=== PATIENT | female | born 1955 | race Caucasian/White ===

== ENCOUNTER 2018-10-11 16:17 | Outpatient (REF) | payer SELFPAY ==
--- NOTE | 2018-10-11 13:45 | PAPFT_PTH ---
PATIENT: Symone Macias LOC: [facility] U#:[id number] AGE/SX: 63/F ROOM: RE10/11/[address]: Bobbi Barajas : 1955 BED: DIS: 10/11/2018 SPEC #: [id number] RECD: 10/11/18 18:15 STATUS: SUNDEEP REVicki #: [id number] MANGO: 10/11/18 13:[address]: Bobbi Barajas DEPT: [facility] Cytology RECD BY: Tanisha Nelson Tissues: 1 - CX/ENDOCX FOR PAP SMEARS Procedures: PAP THIN PREP/UVM Screening HPV DNA PROBE Comments: [id number]
== END 2018-10-11 16:37 ==
LOC: NCHCN 16:17
PROVIDERS: PCP Family Medicine; Visit Provider Family Medicine
DX: Z12.4 Encounter for screening for malignant neoplasm of cervix (principal); Z11.51 Encounter for screening for human papillomavirus (HPV)
CPT/HCPCS: 88142; 87624

== ENCOUNTER 2018-10-21 00:18 | Outpatient (CLI) | payer SELFPAY ==
--- NOTE | 2018-10-21 10:40 | DI.MAMMO_ITS ---
SYMPTOM/DIAGNOSIS: SCREENING FOR BREAST CANCER, Z12.39 MAMMOGRAMS: Mammograms were interpreted according to the usual protocol including computer analysis with CAD system, tomosynthesis and C view imaging. The breast tissue is heterogeneously radiodense which may lower the sensitivity of the study. There is no dominant mass. There are no suspicious calcifications. A small biopsy clip is identified in the superior portion of the right breast. There has been no significant interval change when compared with prior images. SUMMARY: No evidence of malignancy. Category 1, yearly screening mammography is recommended. Breast density category C. MQSA ASSESSMENT OF FINDINGS: Negative. Category 1. Patient will receive a letter notifying them of these results. Bi-RADS category C. The breasts are heterogeneously dense, which may obscure small masses.
== END 2018-10-21 00:38 ==
PROVIDERS: PCP Family Medicine; Visit Provider Family Medicine
DX: Z12.31 Encounter for screening mammogram for malignant neoplasm of breast (principal)
CPT/HCPCS: 77063; 77067

== ENCOUNTER 2021-09-02 18:19 | Outpatient (REF) | payer MEDICARE, SELFPAY ==
[2021-09-02 14:44] LABS: Calculated LDL 179 mg/dL (<100); Cholesterol 280 mg/dL (<200); HDL Cholesterol 94 mg/dL (40-60); Triglyceride 39 mg/dL (<150)
[2021-09-03 10:45] LABS: HIV-1/2 Ag & Ab Screen Negative (Negative)
[2021-09-03 10:53] LABS: Hepatitis C Ab w Rflx HCV PCR Negative (Negative)
== END 2021-09-02 18:20 | disposition home or self-care (01) ==
LOC: NCHCN 18:19
PROVIDERS: PCP Family Medicine; Visit Provider Family Medicine
DX: Z00.00 Encounter for general adult medical examination without abnormal findings (principal); Z13.220 Encounter for screening for lipoid disorders; Z11.4 Encounter for screening for human immunodeficiency virus [HIV]; Z11.59 Encounter for screening for other viral diseases
CPT/HCPCS: 80061; 86803; 87389

== ENCOUNTER → 2021-10-24 02:08 | Outpatient (CLI) | payer MEDICARE, SELFPAY ==
--- NOTE | 2021-10-24 15:00 | DI.DEXA_ITS ---
Exam(s) XR DEXA BONE DENSITY W/WO KYLIE EXAM: XR DEXA BONE DENSITY W/WO KYLIE CLINICAL HISTORY: MENOPAUSAL, Z78.0 TECHNIQUE: [employer] C densitometer analysis of left hip, lumbar spine and left forearm. COMPARISON: CR ABD FLAT UPRIGHT PA CHEST from 05/21/2012 CR SACRUM COCCYX from 11/15/2012 FINDINGS: Lateral view of the thoracic and lumbar spine shows no evidence of compression fractures. Upper and mid thoracic vertebral bodies not optimally visualized. Thoracic kyphosis. Bone mineral density measurements of the lumbar spine correspond to a total T-score of -1.3, consiste nt with osteopenia. Bone mineral density measurements of the left hip correspond to a total T-score of -1.5. The femora l neck T-score is -1.7, consistent with osteopenia.. The right forearm bone mineral density measurements correspond to a T-score of the distal 3rd of 0, i n the normal range. . IMPRESSION: Osteopenia the lumbar spine and left hip. normal bone mineral density of the right forearm.
--- NOTE | 2021-10-24 15:30 | DI.MAMMO_ITS ---
Exam(s) MAMMO SCREENING EXAM: MAMMO SCREENING CLINICAL HISTORY: SCREENING, Z12.39 TECHNIQUE: Mammograms were interpreted according to the usual protocol including computer analysis w [employer] CAD system, tomosynthesis and C-view imaging. COMPARISON: 2012 through 2018 FINDINGS: The breasts are composed of scattered fibroglandular densities, Breast Density category B. No suspicious masses or suspicious microcalcifications are seen. A biopsy marker is noted in the post erior right breast. No skin thickening or abnormal axillary lymph nodes are seen. There has been no significant change from prior exams. IMPRESSION: BI-RADS Category 1, Negative mammogram Yearly screening mammography is recommended. Breast Density - Category B, scattered fibroglandular densities. A negative radiographic report should not delay biopsy if a dominant or clinically suspicious mass is present. Up to ten percent of cancers are not identified on mammography. A negative report may reinforce clinical impression. Adenosis and dense breasts may obscure an underlying neoplasm. False positive reports average 6 to 10%. Patient will receive a letter notifying them of these results.
== END ==
PROVIDERS: PCP Family Medicine; Visit Provider Family Medicine
DX: Z12.31 Encounter for screening mammogram for malignant neoplasm of breast (principal); M85.89 Other specified disorders of bone density and structure, multiple sites; Z78.0 Asymptomatic menopausal state
CPT/HCPCS: 77063; 77067; 77080

== ENCOUNTER 2023-01-09 08:28 | Emergency (ER) | payer MEDICARE, SELFPAY ==
[2023-01-09 08:32] VITALS: BP 147/74; PULSE 94; RESP 18; TEMP 36.4; O2SAT 99
[2023-01-09 09:06] LABS: Abs Immature Grans 0.02 10^3/uL (0.0-0.06); Absolute Basophil Count 0.05 10^3/uL (0.0-0.2); Absolute Eosinophil Count 0.02 10^3/uL (0.0-0.7); Absolute Lymphocyte Count 0.76 10^3/uL (1.2-3.4); Absolute Monocyte Count 0.66 10^3/uL (0.1-0.8); Absolute Neutrophil Count 4.09 10^3/uL (1.2-6.7); Basophils % 0.9; Eosinophils % 0.4; HCT 45.9 % (36.0-46.0); HGB 15.9 g/dL (11.2-15.7); Immature Grans % 0.4; Lymphocytes % 13.6; MCH 30.3 pg (27.0-33.0); MCHC 34.6 % (32.0-36.0); MCV 88 fL (80-95); Monocytes % 11.8; Neutrophils % 72.9; RBC 5.24 10^6/uL (3.93-5.22); RDW 12.7 % (11.7-14.6); RDW-SD 41.1 fL
--- NOTE | 2023-01-09 09:14 | W.ED.GENAD ---
Discharge Plan Disposition Patient Disposition: Home Discharge Details Clinical Impression: Colitis Primary Care Provider: Bobbi Barajas ED Provider: Max Marina Home Meds and New Rx's Prescriptions: New levofloxacin 500 mg tablet 500 mg PO DAILY Qty: 5 0RF No Action diphenhydramine HCl 50 MG capsule 50 mg PO HS Patient Comments: not taking melatonin 3 MG tablet 3 mg PO HS Patient Comments: not taking Discharge Instructions Instructions: Colitis (ED) Additional Instructions: Continue to stay well-hydrated and eat a diverse proper diet. It is also recommended that you use probiotics to help replenish your gut with healthy bacteria as you are being placed on an antibiotic to kill the harmful bacteria suspected causing your symptoms. If you have any new or significant worsening of symptoms feel free to return the emergency department for reassessment otherwise follow-up with your primary care provider as discussed Referrals: Bobbi Barajas MD [Primary Care Provider] - Medical Decision Making Patient presenting to the emergency department for chief complaint of abdominal cramping and diarrhea. Patient states 6 days ago she ate a lot of junk food which then caused her to have some diarrhea and upset stomach over the next couple days. Symptoms seem to start resolving but then last night she ate blackberries and woke up in the middle of the night with severe abdominal cramping pain discomfort. She does state some nausea. Denies any urinary symptoms. Patient states only past medical history is of cholecystectomy. Patient otherwise takes no other daily medications. Physical exam shows adult female patient in moderate amount of abdominal pain distress guarding and holding abdomen. Abdomen is soft with diffuse tenderness that cannot be localized, normal cardiac and respiratory exam, no CVA tenderness. We will plan on checking patient's labs and CT imaging of the abdomen. Differential diagnosis to include colitis, diverticulitis, appendicitis, other undifferentiated intra-abdominal pathology. Pending results will give patient ketorolac, hydromorphone, zofran and IV fluids. Reviewed patient's labs and CBC only shows slight increase of hemoglobin and RBCs otherwise no significant leukocytosis or shift, CMP shows anion gap of 12.1 with BUN of 23 again otherwise all other values within normal range, normal range lipase. Reviewed CT imaging and discussed this with radiologist who states significant colitis with differentials to include inflammatory versus infectious. He does state given appearance he will be concern for infectious nature. He did recommend patient has a colonoscopy once symptoms have resolved on an outpatient basis. Patient was informed of this recommendation and she states that she is currently moving but will discuss this with her new primary care provider. Given that all of patient's symptoms started with acute episode of eating I do feel there is potential for this to be infectious and we will treat patient empirically with Levaquin. Did discuss the risk of fluoroquinolones with patient. After discussion of diagnosis and plan of care patient has no further needs, questions, or concerns and states clear understanding to return to the emergency department for any worsening symptoms. This documentation was generated using [employer] dictation system, please disregard any oddities of phrase or misspellings. Imaging Data Radiologic Study: Imaging: CT Scan Radiologist's impression: Exam(s) a CT:CT abdomen & pelvis w Exam(s) CT ABDOMEN PELVIS W EXAM: CT ABDOMEN PELVIS W CLINICAL HISTORY: Abdominal cramping nausea diarrhea TECHNIQUE: Imaging Protocol: Axial computed tomography images with coronal and sagittal reformatted images were created and reviewed CONTRAST MATERIAL: Intravenous: Omnipaque 350 Contrast volume:89 mL Oral: yes / no COMPARISON: CT UPPER ABD WITH CONTRAST (P) from 05/21/2012 FINDINGS: ABDOMEN: Lung Bases: Normal where visualized. Liver: Normal density. There are few tiny (less than 3 mm hypodense lesions scattered in the liver. They are too small for further characterization. Portal, Superior Mesenteric, and Splenic Veins: Unremarkable. Gallbladder and Biliary Tract: Status post cholecystectomy. No significant biliary ductal dilatation is seen. Pancreas: Normal density, no abnormal calcifications or inflammatory process. Spleen: Normal. Adrenals: No masses seen. Kidneys: Normal size, contour and axis. No radiodense stones or obstructive uropathy. No masses seen. Abdominal Aorta: Abdominal portion non-dilated. Atherosclerosis. Bowel: There is a redundant sigmoid colon. There is wall thickening beginning in the ascending colon and extending nearly the entire length of the transverse colon. Inflammatory stranding is seen around the colon. A portion of the 5th soft tissue thickening extends into the lumen of the cecum. A soft tissue mass should be considered. There is mild dilatation of the terminal ileum but no ileal lesion is seen. The small bowel is of normal caliber. No pneumatosis is seen. Appendix is unremarkable. Peritoneal Cavity: No ascites, collection or mesenteric inflammatory response. No free air. Lymph Nodes: Within normal limits. Bones: Within normal limits for the patient's age. Soft Tissues: Unremarkable. PELVIS: Bladder: Symmetric distention, no gross wall thickening. Reproductive Organs: Unremarkable as visualized. Lymph Nodes: Within normal limits. Bones: Within normal limits for the patient's age. IMPRESSION: 1. Bowel wall thickening extending from the ascending colon through the length of the transverse colon with pericolonic inflammatory changes. The findings are most suspicious for an infectious or inflammatory colitis. 2. There is an irregular portion of the bowel wall seen proximally near the region of the cecum. While this may be inflammatory/infectious in nature, following treatment, a barium enema or colonoscopy is recommended to exclude an underlying mass. Lab Data Lab results reviewed: Yes I reviewed the patient's lab results. HPI General Mode of arrival: ambulatory. Date/Time Provider Initiated Documentation: 01/09/23 08:29. Limitations to Documentation: no limitations. Information obtained by: patient, family and RN notes reviewed. History of Present Illness 67 year old F presents to the emergency department with the chief complaint of Abdominal discomfort cramping diarrhea, described as moderate and severe, Quality is described as aching and other (Cramping), and is localized to the abdomen. Patient started experiencing this day(s) (6) and it has been constant. No relieving factors improve symptom(s), Eating worsens symptoms . Patient notes loss of appetite, malaise and nausea/vomiting. Patient did receive the following treatments prior to arrival, none Related Data Home Medications Medication Instructions Recorded Confirmed diphenhydramine HCl 50 mg capsule 50 mg PO HS 05/02/16 05/02/16 melatonin 3 mg tablet 3 mg PO HS 05/02/16 05/02/16 levofloxacin 500 mg tablet 500 mg PO DAILY #5 tabs 01/09/23 Previous Rx's Medication Instructions Recorded levofloxacin 500 mg tablet 500 mg PO DAILY #5 tabs 01/09/23 Allergies Allergy/AdvReac Type Severity Reaction Status Date / Time No Known Allergies Allergy Unverified 05/02/16 21:18 General Stated Complaint: Abd Prob AMANDA: 3 Review of Systems Constitutional Constitutional: Reports chills, Denies fever(s), Denies headache(s), Reports malaise and Reports poor appetite ENT Ears, Nose, Mouth, and Throat: Denies headache(s) Cardiovascular Cardiovascular: Denies chest pain and Denies dyspnea Respiratory Respiratory: Denies dyspnea Gastrointestinal Gastrointestinal: Reports as per HPI, Reports abdominal pain, Denies melena, Denies hematochezia, Denies change in bowel habits, Denies constipation, Reports diarrhea, Reports nausea and Reports vomiting Genitourinary Genitourinary: Denies hematuria and Denies dysuria Integumentary/Breasts Skin/Breast: Denies rash Neurologic Neurologic: Denies headache(s) PFSH All Active Problems (Updated 01/09/23 @ 10:49 by Max Marina NP) Colitis (Acute) Surgical History (Updated 01/09/23 @ 09:23 by Max Marina NP) History of cholecystectomy Social History Smoking/Tobacco Use Status: Never Smoking risk assessment performed?: Yes Alcohol Intake: never Drug use: Never Substance use type: former substance user Housing: house Do you feel safe at home: Yes Do you feel safe in your relationship?: Yes Exam Const General: cooperative Orientation: alert, awake and oriented x3 Resp Effort & Inspection: normal respiratory effort and able to speak in complete sentences Auscultation: clear to auscultation bilaterally Cardio Rate: regular rate Rhythm: regular rhythm Heart Sounds: S1 normal and S2 normal GI Palpation: soft, not firm, no guarding, no masses, no pulsatile masses, not rigid and tender (Diffuse nonfocal) Auscultation: normal bowel sounds Back/Spine/Pelvis Back: no CVA tenderness Neuro General: patient alert, patient awake, patient oriented x3, gait normal and moves all extremities Course Vital Signs Vital signs: Vital Signs Temperature 36.4 C L 01/09/23 08:32 Pulse 94 H 01/09/23 08:32 Respiratory Rate 18 01/09/23 08:32 Blood Pressure 147/74 H 01/09/23 08:32 Pulse Oximetry 99 01/09/23 08:32 Temperature 36.4 C L 01/09/23 08:32 Temperature Source Temporal Artery Scan 01/09/23 08:32 Pulse 94 H 01/09/23 08:32 Respiratory Rate 18 01/09/23 08:32 Respiratory Effort Normal, Non-Labored 01/09/23 08:38 Blood Pressure 147/74 H 01/09/23 08:32 Blood Pressure Position Sitting 01/09/23 08:32 Pulse Oximetry 99 01/09/23 08:32 Oxygen Delivery Method Room Air 01/09/23 08:32 Oxygen Flow Rate 0 01/09/23 08:32
[2023-01-09 09:22] LABS: ALT 24 U/L (14-59); AST 25 U/L (15-37); Alkaline Phosphatase 80 U/L (46-116); Anion Gap 12.1 mmol/L (3-11); BUN 23 mg/dL (7-18); Bilirubin, Total 0.5 mg/dL (0.2-1.0); CO2 24.9 mmol/L (21.0-32.0); CREATININE 0.9 mg/dL (0.55-1.02); Calcium 9.4 mg/dL (8.5-10.1); Chloride 99 mmol/L (98-107); Estimated GFR 70.51 (mL/min/1.73m2); Glucose 104 mg/dL (74-106); Lipase 58 U/L (16-77); Magnesium 1.9 mg/dL (1.8-2.4); Potassium 4.1 mmol/L (3.5-5.1); Sodium 136 mmol/L (136-145); Total Protein 7.6 g/dL (6.4-8.2)
[2023-01-09] MEDS: HYDROmorphone 2 MG/ML SYR 0.5 MG IVP (09:23)
[2023-01-09] MEDS: Ketorolac 15 MG/ML VIAL IVP (09:24)
[2023-01-09] MEDS: Normal Saline 1,000 ML 1000 ML IV (09:24)
[2023-01-09] MEDS: Ondansetron 4 MG/2 ML VIAL IVP (09:24)
[2023-01-09 09:25] LABS: Diff Comment Diff Reviewed; RBC Morphology Normal
--- NOTE | 2023-01-09 10:01 | DI.CT_ITS ---
Exam(s) CT ABDOMEN PELVIS W EXAM: CT ABDOMEN PELVIS W CLINICAL HISTORY: Abdominal cramping nausea diarrhea TECHNIQUE: Imaging Protocol: Axial computed tomography images with coronal and sagittal reformatted images were created and reviewed CONTRAST MATERIAL: Intravenous: Omnipaque 350 Contrast volume:89 mL Oral: yes / no COMPARISON: CT UPPER ABD WITH CONTRAST (P) from 05/21/2012 FINDINGS: ABDOMEN: Lung Bases: Normal where visualized. Liver: Normal density. There are few tiny (less than 3 mm hypodense lesions scattered in the liver. T hey are too small for further characterization. Portal, Superior Mesenteric, and Splenic Veins: Unremarkable. Gallbladder and Biliary Tract: Status post cholecystectomy. No significant biliary ductal dilatation is seen. Pancreas: Normal density, no abnormal calcifications or inflammatory process. Spleen: Normal. Adrenals: No masses seen. Kidneys: Normal size, contour and axis. No radiodense stones or obstructive uropathy. No masses seen. Abdominal Aorta: Abdominal portion non-dilated. Atherosclerosis. Bowel: There is a redundant sigmoid colon. There is wall thickening beginning in the ascending colon and extending nearly the entire length of the transverse colon. Inflammatory stranding is seen around the colon. A portion of the 5th soft tissue thickening extends into the lumen of the cecum. A soft t issue mass should be considered. There is mild dilatation of the terminal ileum but no ileal lesion i s seen. The small bowel is of normal caliber. No pneumatosis is seen. Appendix is unremarkable. Peritoneal Cavity: No ascites, collection or mesenteric inflammatory response. No free air. Lymph Nodes: Within normal limits. Bones: Within normal limits for the patient's age. Soft Tissues: Unremarkable. PELVIS: Bladder: Symmetric distention, no gross wall thickening. Reproductive Organs: Unremarkable as visualized. Lymph Nodes: Within normal limits. Bones: Within normal limits for the patient's age. IMPRESSION: 1. Bowel wall thickening extending from the ascending colon through the length of the transverse colo n with pericolonic inflammatory changes. The findings are most suspicious for an infectious or inflam matory colitis. 2. There is an irregular portion of the bowel wall seen proximally near the region of the cecum. Whil e this may be inflammatory/infectious in nature, following treatment, a barium enema or colonoscopy i s recommended to exclude an underlying mass. 3. Findings were discussed with Max Marina at 10:25 a.m. on 01/09/2023. RADIATION DOSE DELIVERED: 784.23mGy.cm Total DLP DATA REPOSITORY: All CT scans at this facility are submitted to the National Radiology Data Registry (NRDR) Dose Index Registry (DIR) with the [employer] ([employer]). RADIATION OPTIMIZATION: All CT scans at this facility use at least one of these dose optimization te chniques: automated exposure control; mA and/or kV adjustment per patient size (includes targeted exa ms where dose is matched to clinical indication); or iterative reconstruction.
[2023-01-09] MEDS: Normal Saline - Diluent 50 ML VIAL IV (10:03)
[2023-01-09] MEDS: Omnipaque 350 MG/ML 100 ML BTL 89 ML IJ (10:04)
[2023-01-09] MEDS: LORazepam 2 MG/ML VIAL 0.5 MG IVP (10:16)
[2023-01-09] MEDS: levoFLOXacin 500 MG TAB PO (10:48)
[2023-01-09 11:05] VITALS: BP 128/84; PULSE 76; RESP 22; TEMP 37.2; O2SAT 96
== END 2023-01-09 11:07 | disposition home or self-care (01) ==
PROVIDERS: Emergency Provider Nurse Practitioner Family; PCP Family Medicine
DX: K52.9 Noninfective gastroenteritis and colitis, unspecified; R10.9 Unspecified abdominal pain; Z90.49 Acquired absence of other specified parts of digestive tract
CPT/HCPCS: 36415; 80053; 83690; 96361; 96374; 96375; 99285; 74177; 81003; 83735; 85025; J1170; J1885; J2060; J2405; J3490